=== PATIENT | male | born 1985 | race Caucasian/White ===

== ENCOUNTER 2022-02-16 13:31 | Emergency (ER) | payer OTHER, SELFPAY ==
--- NOTE | ~2022-02-16 | XR_ITS ---
EXAMINATION: XR chest 2V DATE: 02/16/2022 14:35 INDICATION: Chest pain. TECHNIQUE: Frontal and lateral views of the chest were obtained. COMPARISON: None. FINDINGS: The chest demonstrates clear lungs without pneumonia, pleural effusion, or pneumothorax. Th e heart size is normal. IMPRESSION: 1. No acute cardiopulmonary disease. Reviewed, dictated and finalized at location A.
[2022-02-16 13:34] VITALS: BP 128/81; PULSE 90; RESP 18; TEMP 36.4; O2SAT 99
--- NOTE | 2022-02-16 13:39 | ECG_ITS ---
Measurements Intervals [place] Rate: 83 P: 78 CA: 154 QRS: 76 QRSD: 90 T: 55 QT: 353 QTc: 416 Interpretive Statements SINUS RHYTHM BASELINE WANDER- V2 NORMAL ECG Electronically Signed On 02-16-2022 14:28:20 CDT by Chmeo Alaniz D.O.
[2022-02-16 13:57] LABS: Basophils Absolute Auto 0.1 K/mm3 (0.0-0.1); Basophils Percent Auto 0.6 % (0.2-1.2); Eosinophils Absolute Auto 0.2 K/mm3 (0-0.3); Eosinophils Percent Auto 2.7 % (0-4.4); Hematocrit 46.8 % (42.0-52.0); Immature Granulocyte Absolute 0.03 K/mm3 (0.00-0.031); Immature Granulocyte Percent A 0.3 % (0-0.5); Lymphocytes Absolute Auto 2.21 K/mm3 (0.9-3.2); Lymphocytes Percent Auto 24.6 % (18.3-44.2); Mean Corpuscular HGB Conc 34.2 g/dl (32-36); Mean Corpuscular Hemoglobin 32.1 pg (26-34); Mean Platelet Volume 9.2 fl (7.4-10.4); Monocytes Absolute Auto 0.6 K/mm3 (0.1-0.6); Monocytes Percent Auto 6.5 % (2.6-8.5); Neutrophils Absolute Auto 5.9 K/mm3 (1.3-6.7); Neutrophils Percent Auto 65.3 % (45.5-73.1); Platelet Count Result 250 k/mm3 (150-375); Red Blood Count 4.98 M/mm3 (4.6-6.20)
[2022-02-16 14:06] LABS: Alanine Aminotransferase 14 U/L (6-50); Albumin Level 4.2 g/dL (3.5-5.1); Alkaline Phosphatase 93 U/L (38-126); Anion Gap 7 mmol/L (8-16); Aspartate Amino Transferase 26 U/L (17-59); Bilirubin,Total 0.5 mg/dL (0.2-1.3); Blood Urea Nitrogen 10 mg/dL (9-20); Calcium 8.7 mg/dL (8.4-10.2); Carbon Dioxide 30 mmol/L (22-30); Chloride 103 mmol/L (98-107); Estimated CRCL calculation 116 ml/min; Estimated Glomerular Filt Rate > 60; Glucose 98 mg/dL (65-110); Lipase 49 U/L (23-300); Potassium 3.8 mmol/L (3.4-5.0); Sodium 140 mmol/L (137-145)
[2022-02-16 14:13] LABS: INR 1.1; Partial Thromboplastin Time 37.7 SECONDS (22.3-36.8); Prothrombin Time 13.7 Seconds (11.1-14.7)
[2022-02-16 14:17] LABS: Troponin I < 0.012 ng/mL (0.000-0.034)
[2022-02-16 15:28] VITALS: BP 127/62; PULSE 79; RESP 14; TEMP 37.2; O2SAT 98
[2022-02-16 17:02] LABS: Troponin I < 0.012 ng/mL (0.000-0.034)
--- NOTE | 2022-02-16 17:10 | ED.GENADULT ---
HPI - General Adult General Chief complaint: Unspecified Stated complaint: chest pain Time Seen by Provider: 02/16/22 16:51 Source: patient Mode of arrival: ambulatory Limitations: no limitations History of Present Illness HPI narrative: This is a 36 year old male who presents for evaluation of muliple complaints. Patient states 1 month ago his family had viral URI symptoms. He states he developed sore throat, cough around that time as well. He states his symptoms have continued to linger although improved. He has noticed this week he has white spots on his tonsil. He states he has been dealing with hemorrhoid pain with constipation. He reports his hemorroids have improved, but he still has mild discomfort with BM but denies bleeding. He has also noticed bilateral inguinal lymph nodes. He denies fever, chills, nausea, vomiting, sob, penile lesions or discharge.He developed midsternal chest pain that was nonradiating this morning. It has not resolved. He came to ER because he developed chest pain. Related Data Allergies Allergy/AdvReac Type Severity Reaction Status Date / Time No Known Allergies Allergy Unverified 02/12/14 12:44 Review of Systems Review of Systems: All systems reviewed & are unremarkable except as noted in HPI and below Constitutional: Constitutional: Denies chills ENT: Reports nasal congestion, Reports post nasal drip and Reports sore throat Cardiovascular: Cardiovascular: Reports chest pain, Denies leg edema, Denies lightheadedness and Denies dyspnea Respiratory: Respiratory: Reports cough, Denies hemoptysis and Denies pain on inspiration Gastrointestinal: Gastrointestinal: Denies abdominal pain, Denies belching, Denies melena and Denies bloating PMFSH Past Medical History Medical History (Updated 02/16/22 @ 18:45 by Torie Khan MD) Patient denies medical problems Social History Social History (Updated 02/16/22 @ 17:19 by Torie Khan MD) Smoking packs per day: 0.5 Smoking cigarettes per day: 10.0 Smoking status: Current every day smoker Alcohol intake: never Substance use: never Exam Narrative: GENERAL: Well-appearing, well-nourished, and in no acute distress. HEAD: Normocephalic, atraumatic EYES: PERRLA and EOMI, conjunctiva clear without discharge EARS: TM's clear bilaterally without erythema or dullness NOSE: Nares clear, no rhinorrhea or epistaxis THROAT:Mucous membranes moist, no tonsillar enlargement, but bilateral tonsillar exudae present NECK: Supple, without lymphadenopathy or mass RESPIRATORY: No respiratory distress, Airway patent, Respirations non-labored, Clear to auscultation without rales, rhonchi or wheeze HEART: Regular rate and rhythm. No murmur heard. Normal peripheral pulses. ABDOMEN: Soft, nontender, nondistended, normal active bowel sounds. No masses. No rebound or guarding, No organomegaly. bilateral inguinal lymphadenopathy present. EXTREMITIES: No edema, normal strength with full range of motion. SKIN: Warm, dry, normal color without rash NEURO: Alert and oriented x3. CN 2-12 grossly intact. No focal deficits. PSYCH: Normal mood and affect. Course Reevaluation(s) Reevaluation #1: Patient wants to leave. I Discussed [facility] patient that I am waiting a couple of test still. He still wants to leave AMA. I discussed I would given antibiotics for tonsillitis and he will need follow up is his lymphadenopathy does not resolve. Patient left without prescription or paperwork Date: 02/16/22 Time: 18:43 Vital Signs Vital signs: Vital Signs Temperature 97.6 F 02/16/22 13:34 Pulse Rate 90 02/16/22 13:34 Respiratory Rate 18 02/16/22 13:34 Blood Pressure 128/81 02/16/22 13:34 Pulse Oximetry 99 02/16/22 13:34 Temperature 98.9 F 02/16/22 15:28 Pulse Rate 79 02/16/22 15:28 Respiratory Rate 14 02/16/22 15:28 Blood Pressure 127/62 02/16/22 15:28 Pulse Oximetry 98 02/16/22 15:28 Medical Decision Pineda
[2022-02-16 17:52] LABS: Add Urine Microscopic? NO; Appearance Urine Clear (Clear); Bilirubin Urine Negative (Negative); Blood Urine Negative (Negative); Color Urine Yellow (Yellow); Glucose Urine UA Negative (Negative); Ketones Urine Negative (Negative); Leukocyte Esterase Ur Negative LEU/UL (Negative); Nitrate Urine Negative (Negative); Protein Urine Negative (Negative); Urobilinogen Urine 0.2 mg/dL (<2.0)
[2022-02-16 18:30] LABS: Monoscreen Negative (Negative); Negative Monotest Control Negative (Negative); Positive Monotest Control Positive (Positive)
--- NOTE | 2022-02-16 18:40 | PC.NURSE ---
PT signed out AMA. DR portillo spoke with PT on risks and benefits.
[2022-02-16 18:45] LABS: HIV 1/2 Ab P24 Ag Result Negative (Negative)
[2022-02-16 18:52] LABS: Mucus Urine Rare /lpf; Squamous Epithelial Cell Urine Rare /hpf (Few); WBC Urine 0-3 /hpf
== END 2022-02-16 18:43 | disposition left against medical advice (07) ==
PROVIDERS: Emergency Medicine; Emergency Provider General Practice
DX: R07.89 Other chest pain (principal); J03.90 Acute tonsillitis, unspecified; R59.0 Localized enlarged lymph nodes; F17.210 Nicotine dependence, cigarettes, uncomplicated
CPT/HCPCS: 36415; 71046; 80053; 81003; 83690; 84484; 85025; 85610; 85730; 86308; 86703; 87491; 87591; 87880; 93005; 99284; G0432

== ENCOUNTER 2024-12-26 09:45 | Emergency (ER) | payer OTHER, SELFPAY ==
--- OUTSIDE RECORDS SUMMARY | 2024-12-26 09:48 | XMS_ITS | Clinical Summary ---
Author Organization [facility] Address [address] [place] [address] Care Team Providers Care Irrigator Name Role Phone Unavailable Primary Care Provider Unavailabl e Source Comments [facility],non-owned Affiliates and Associated Physician Practices is amultiple site organization consisting of ambulatory clinics and hospital sitesin [place], [place] and [place]. This disclosure is being madepursuant to the Care Everywhere program and may not contain all information available regarding this patient. Last updated 18.[facility] [employer] Allergies No known active allergies Medications * Be aware that medications may not be up to date on this document. Alwaysverify current medications with the patient. Medication Sig Dispensed Refills Start Date End Date Status ibuprofen (MOTRIN) 800 MG tablet Take 1 Tab by mouth every 8 hours as needed for Pain or Fever 40 Tab 06/12/2017 Active Social History Tobacco Use Types Packs/Day Years Used Date Smoking Tobacco: Every Day Cigarettes 0.5 10 Smokeless Tobacco: Never Alcohol Use Standard Drinks/Week Comments Yes 0 (1 standard drink = 0.6 oz pur e alcohol) Sex and Gender Information Value Date Recorded Sex Assigned at Not on file Gender Identity Not on file Sexual Orientation Not on file Last Filed Vital Signs Vital Sign Reading Time Taken Comments Blood Pressure 143/80 07/11/2017 8:53 AM CDT Pulse 96 07/11/2017 8:53 AM CDT Temperature 36.6 C (97.9 F) 07/11/2017 8:53 AM CDT Respiratory Rate - - Oxygen Saturation 96% 07/11/2017 8:53 AM CDT Inhaled Oxygen Concentration - - Weight 81.6 kg (180 lb) 07/11/2017 8:53 AM CDT Height 188 cm (6' 2 ) 07/11/2017 8:53 AM CDT Body Mass Index 23.11 07/11/2017 8:53 AM CDT Plan of Treatment Health Maintenance Due Date Last Done Comments LIPID TESTING 1983 HIV SCREENING 1998 HEPATITIS C SCREENING 11/15/2001 DTAP/TDAP/TD VACCINES (1 - Tdap) 2002 HEPATITIS B VACCINE (1 of 3 - 19+ 3-dose series) 2002 COVID-19 VACCINE (1 - 2023-2 5 season) 2024 INFLUENZA VACCINE (#1) 2024 DEPRESSION SCREENING 09/30/2024 ZOSTER VACCINE (1 of 2) 2033 HIB VACCINE Aged Out No longer eligi ble based on patient's age to complete this topic HPV VACCINE Aged Out No longer eligi ble based on patient's age to complete this topic MENINGOCOCCAL (Group B) VACC INE SHARED DECISION-MAKING Aged Out No longer eligibl e based on patient's age to complete this topic MENINGOCOCCAL GROUPS A/C/Y/W VACCINE Aged Out No longer eligible b ased on patient's age to complete this topic PNEUMOCOCCAL VACCINE Aged Out No long er eligible based on patient's [place] [address]
--- NOTE | 2024-12-26 09:49 | ED.GENADULT ---
HPI - General Adult General Chief complaint: Extremity Injury, Lower Stated complaint: right leg pain Time Seen by Provider: 12/26/24 09:48 Source: patient Mode of arrival: ambulatory Limitations: no limitations History of Present Illness HPI narrative: 39-year-old male patient presents to the [facility] with complaints of low back pain on the right lower side. Patient states he has been dealing with this for the past 6 months. Patient states he has had a bad back his entire life. Patient has been going to a chiropractor getting adjusted. Patient did have an x-ray done which does show a bulging disc to the lumbar spine. Patient states the past week the back pain is getting significantly worse and now it is radiating down to the right buttocks and right leg. Patient denies any numbness or tingling. Denies any loss of bowel or bladder control continues to ambulate. Patient states he has been using Aleve but really has not been helping the pain much. Related Data Allergies Allergy/AdvReac Type Severity Reaction Status Date / Time No Known Allergies Allergy Verified 12/26/24 09:53 Review of Systems Review of Systems: CONSTITUTIONAL: Denies fever, chills, or sweats. EYES: Denies visual changes, redness, or discharge. ENT: Denies rhinorrhea, congestion, sore throat, or otalgia. CARDIOVASCULAR: Denies chest pain, palpitations, or edema. RESPIRATORY: Denies cough or dyspnea. GASTROINTESTINAL: Denies abdominal pain, nausea, vomiting, or diarrhea. GENITOURINARY: Denies dysuria or hematuria. SKIN: Denies rash or itching. MUSCULOSKELETAL: Denies back pain, joint pain, or myalgia. Positive right lower back pain that radiates to the right leg NEUROLOGIC: Denies headache, numbness, or weakness. PSYCHIATRIC: Denies anxiety or depression. [facility] Past Medical History Medical History Patient denies medical problems Social History Social History Smoking packs per day: 0.5 Smoking cigarettes per day: 10.0 Smoking status: Current every day smoker Alcohol intake: never Substance use: never Comments At the time of my signature I agree with nursing past medical history, surgical, social, and family history. There is no relevant family history pertinent to the presenting complaint. Exam Narrative: GENERAL: Well-appearing, well-nourished, and in no acute distress. HEAD: Normocephalic, atraumatic. EYES: PERRLA and EOMI. ENT: Nares clear, no rhinorrhea or epistaxis. Mucous membranes moist. NECK: Supple. No lymphadenopathy CHEST: Clear to auscultation. No respiratory distress. HEART: Regular rate and rhythm. No murmur heard. Normal peripheral pulses. ABDOMEN: Soft, nontender, nondistended, normal active bowel sounds. EXTREMITIES: Normal range of motion. No edema. BACK: Patient is able to ambulated without assistance. Pt is seated on the stretcher in no obvious distress. No surface trauma noted. No muscle tenderness to Palpation. No spasm or mass. No step-offs or deformity noted to the cervical, thoracic or lumbar spine to firm Palpation at the midline. No CVA tenderness to percussion. No saddle anesthesia. ROM: able to stand erect. Normal flexion, decrease in extension, normal Lateral bending and rotation without limitation or complaint of pain. SKIN: Warm, dry, no rash. NEURO: No focal deficits. Alert and oriented x3. Course Course Level of Care: Express Care Visit Vital Signs Vital signs: Vital Signs Temperature 36.5 C 12/26/24 09:54 Pulse Rate 92 12/26/24 09:54 Respiratory Rate 18 12/26/24 09:54 Blood Pressure 128/75 12/26/24 09:54 Pulse Oximetry 98 12/26/24 09:54 Oxygen Delivery Room Air 12/26/24 09:54 Temperature 36.5 C 12/26/24 09:54 Pulse Rate 92 12/26/24 09:54 Respiratory Rate 18 12/26/24 09:54 Blood Pressure 128/75 12/26/24 09:54 Pulse Oximetry 98 12/26/24 09:54 Oxygen Delivery Room Air 12/26/24 09:54 Vital signs reviewed. Medical Decision Making MDM Narrative Medical decision making narrative: discussed with patient this appears to be most likely a sciatica cause by an accumulation of inflammation. Discussed with patient we will discharge him home with some oral steroids to see if this helps with inflammation and pain and he should follow up with his primary doctor for further evaluation and treatment as needed. Patient verbalized understanding and denies any other questions or concerns at this time. Differential Diagnosis Differential Diagnosis: Differential diagnosis: Acute musculoskeletal injury or exacerbation, neurological emergency, acute coronary syndrome, kidney stones, epidural abscess or hematoma,Cauda Equina Syndrome, herniation. Vital Signs Vital Signs: Vital Signs Temperature 36.5 C 12/26/24 09:54 Pulse Rate 92 12/26/24 09:54 Respiratory Rate 18 12/26/24 09:54 Blood Pressure 128/75 12/26/24 09:54 Pulse Oximetry 98 12/26/24 09:54 Oxygen Delivery Room Air 12/26/24 09:54 Temperature 36.5 C 12/26/24 09:54 Pulse Rate 92 12/26/24 09:54 Respiratory Rate 18 12/26/24 09:54 Blood Pressure 128/75 12/26/24 09:54 Pulse Oximetry 98 12/26/24 09:54 Oxygen Delivery Room Air 12/26/24 09:54 Critical Care Time Critical Care Time Critical Care Time: No Discharge Plan Discharge Clinical Impression: Sciatica associated with disorder of lumbar spine Patient Disposition: Home, Self-Care Condition: Stable Instructions: Antibiotic Form, Sciatica (ED), Lower Back Exercises (ED) Additional Instructions: Ice and heat to the area for 20-30 minutes Gentle stretching exercises Gentle massage Caution with lifting, bending, stooping, twisting Avoid pushing, pulling steroid medicine as directed--take with food in the morning Follow-up with your PCP if not improving in 5-7 days Patient Language: Nauruan Prescriptions: New prednisone 50 mg tablet 50 mg PO DAILY 7 Days Qty: 7 0RF Follow-up/Referrals: UNKNOWN,DOCTOR [Primary Care Provider] - Time of Disposition: 10:13
[2024-12-26 09:54] VITALS: BP 128/75; PULSE 92; RESP 18; TEMP 36.5; O2SAT 98
== END 2024-12-26 10:16 | disposition home or self-care (01) ==
PROVIDERS: Emergency Provider Nurse Practitioner Family
DX: M54.40 Lumbago with sciatica, unspecified side (principal); F17.210 Nicotine dependence, cigarettes, uncomplicated
CPT/HCPCS: 99213; G0463

== ENCOUNTER 2025-01-02 12:38 | Emergency (ER) | payer OTHER, SELFPAY ==
--- OUTSIDE RECORDS SUMMARY | 2025-01-02 12:40 | XMS_ITS | Clinical Summary ---
Author Organization [facility] Address [address] [place] [address] Care Team Providers Care Speech Teacher Name Role Phone Unavailable Primary Care Provider Unavailabl e Source Comments [facility],non-owned Affiliates and Associated Physician Practices is amultiple site organization consisting of ambulatory clinics and hospital sitesin [place], [place], [place] and [place]. This disclosure is being madepursuant to the Care Everywhere program and may not contain all information available regarding this patient. Last updated 18.[facility] Allergies No known active allergies Medications * [...] age [place] [address]
[2025-01-02 12:41] VITALS: BP 125/88; PULSE 89; RESP 19; TEMP 36.4; O2SAT 99
--- NOTE | 2025-01-02 13:44 | PC.NURSE ---
Pt declined to be seen due to wait time, pt ambulated out in NAD.
--- OUTSIDE RECORDS SUMMARY | 2025-01-02 13:46 | XMS_ITS | Clinical Summary ---
Author Organization [facility] Address [address] [place] [address] Care Team Providers Care Design Quality Engineer Name Role Phone Unavailable Primary Care Provider Unavailabl e Source Comments [facility],non-owned Affiliates and Associated Physician Practices is amultiple site organization consisting of ambulatory clinics and hospital sitesin [place], [place], [place] and [place]. This disclosure is being madepursuant to the Care Everywhere program and may not contain all information available regarding this patient. Last updated 18.[facility] [email or web address] Allergies No known active allergies Medications * [...] age [place] [address]
== END 2025-01-02 14:10 | disposition left against medical advice (07) ==
LOC: ANHED 13:45
PROVIDERS: Emergency Provider Emergency Medicine
DX: M54.50 Low back pain, unspecified (principal)
CPT/HCPCS: 99199